=== PATIENT | female | born 1990 | race Caucasian/White ===

== ENCOUNTER 2016-05-02 09:42 | Emergency (ER) | payer MEDICAID, OTHER ==
[2016-05-02 09:43] VITALS: BMI 41.1
[2016-05-02 10:06] VITALS: BP 125/80; PULSE 74; RESP 18; TEMP 98.2; O2SAT 99
--- NOTE | 2016-05-02 11:17 | ED PDOC ---
Arrival/HPI - General Historian: Patient - History of Present Illness Time/Duration: Prior to Arrival Context: Home - General Chief Complaint: ENT Problem Time Seen by Provider: 05/02/16 11:13 - History of Present Illness Narrative History of Present Illness (Text): 05/02/16 11:14 This 25 yo female presents to this ED c/o cough, and feeling she has the Flu. Denies sob, cp, abdominal pain, dizziness, rash, sick contact, or rash (Elly Galindo) Past Medical History - Provider Review Nursing Documentation Reviewed: Yes - Infectious Disease Hx of Infectious Diseases: None - Tetanus Immunization Tetanus Immunization: Unknown - Past Medical History Past Medical History: No Previous - Cardiac Hx Cardiac Disorders: No Hx Hypertension: No - Pulmonary Hx Tuberculosis: No - Neurological HX Cerebrovascular Accident: No Hx Migraine: Yes - HEENT Hx HEENT Disorder: No - Renal Hx Renal Disorder: No - Endocrine/Metabolic Hx Endocrine Disorders: No - Hematological/Oncological Hx Cancer: No - Integumentary Hx Dermatological Disorder: No - Musculoskeletal/Rheumatological Hx Musculoskeletal Disorders: No - Gastrointestinal Hx Gastrointestinal Disorders: No - Genitourinary/Gynecological Hx Sexually Transmitted Diseases: No - Psychiatric Hx Bipolar Disorder: Yes Hx Emotional Abuse: No Hx Physical Abuse: No Hx Substance Use: No Other/Comment: ADD - Surgical History Hx Tonsillectomy: Yes - Anesthesia Hx Anesthesia: Yes Hx Anesthesia Reactions: No Hx Malignant Hyperthermia: No - Suicidal Assessment Feels Threatened In Home Enviroment: No Family/Social History - Physician Review Nursing Documentation Reviewed: Yes Family/Social History: No Known Family HX Smoking Status: Never Smoked Hx Alcohol Use: No Hx Substance Use: No Substance used: [facility] Hx Substance Use Treatment: No Allergies/Home Meds Allergies/Adverse Reactions: Allergies No Known Allergies Allergy (Verified 05/02/16 10:06) Review of Systems - Review of Systems Constitutional: Fevers. absent: Fatigue, Weight Change Eyes: Normal ENT: Normal. absent: Sore Throat Respiratory: Normal, Cough, Sputum. absent: SOB, Wheezing Cardiovascular: Normal. absent: Chest Pain Gastrointestinal: Normal. absent: Abdominal Pain, Nausea, Vomiting Genitourinary Female: Normal. absent: Dysuria, Frequency Musculoskeletal: Normal Skin: Normal. absent: Rash, Pruritis Neurological: Headache. absent: Dizziness, Focal Weakness, Gait Changes, Speech Changes Endocrine: Normal Hemo/Lymphatic: Normal Psychiatric: Normal Physical Exam Temperature: Afebrile Blood Pressure: Normal Pulse: Regular Respiratory Rate: Normal Appearance: Positive for: Well-Appearing, Non-Toxic, Comfortable Pain Distress: None Mental Status: Positive for: Alert and Oriented X 3 - Systems Exam Head: Present: Atraumatic, Normocephalic Pupils: Present: PERRL Extroacular Muscles: Present: EOMI Conjunctiva: Present: Normal Mouth: Present: Moist Mucous Membranes Neck: Present: Normal Range of Motion Respiratory/Chest: Present: Clear to Auscultation, Good Air Exchange. No: Respiratory Distress, Accessory Muscle Use, Wheezes, Retracting, Rhonchi Cardiovascular: Present: Regular Rate and Rhythm, Normal S1, S2. No: Murmurs Abdomen: Present: Normal Bowel Sounds. No: Tenderness, Distention, Peritoneal Signs Back: Present: Normal Inspection. No: CVA Tenderness Upper Extremity: Present: Normal Inspection, Normal ROM, NORMAL PULSES, Neurovascularly Intact, Capillary Refill < 2s. No: Cyanosis, Edema Lower Extremity: Present: Normal Inspection, NORMAL PULSES, Normal ROM, Neurovascularly Intact, Capillary Refill < 2 s. No: Edema Neurological: Present: GCS=15, CN II-XII Intact, Speech Normal, Motor Func Grossly Intact, Normal Sensory Function, Normal Cerebellar Funct, Gait Normal, Memory Normal, Other (No neuro focal deficits) Skin: Present: Warm, Dry, Normal Color. No: Rashes Psychiatric: Present: Alert, Oriented x 3, Normal Insight, Normal Concentration Vital Signs Temp Pulse Resp BP Pulse Ox 05/02/16 10:00 98.2 F 74 18 125/80 99 Medical Decision Making Re-evaluation Time: 11:16 Reassessment Condition: Re-examined, Improved ED Course and Treatment: 05/02/16 11:16 Re-evaluation. Patient feels better. Discussed results and plan with patient who expresses understanding. All questions answered and there is agreement with the plan to discharge home with instructions. Patient stable for discharge. Return if symptoms persist or worsen. Patient is requesting Influenza antibiotic (Elly Galindo) Disposition/Present on Arrival - Present on Arrival Any Indicators Present on Arrival: No History of DVT/PE: No History of Uncontrolled Diabetes: No Urinary Catheter: No History of Decub. Ulcer: No History Surgical Site Infection Following: None - Disposition Have Diagnosis and Disposition been Completed?: Yes Disposition Time: 11:16 Patient Plan: Discharge - Disposition Diagnosis: Flu-like symptoms Disposition: HOME/ ROUTINE Discharge Instructions (ExitCare): Influenza (ED) Additional Instructions: Call private doctor for follow up visit in 2-3 days. Take medication as instructed. Drink enough fluids. Take medication with food. Return to emergency if symptoms worsen. Prescriptions: Promethazine/Codeine [Codeine/Promethazine 10 MG/5 Ml-6.25 MG/5 Ml] 5 ml PO Q4H PRN #120 ml PRN Reason: Cough Oseltamivir [Tamiflu] 75 mg PO BID #10 cap Azithromycin [Z-Fernando] 250 mg PO DAILY #6 tab Referrals: Chyna Burris MD [Primary Care Provider] - Follow up with primary Forms: WORK NOTE
== END 2016-05-02 11:27 | disposition home or self-care (01) ==
LOC: ED 09:42
DX: J11.1 Influenza due to unidentified influenza virus with other respiratory manifestations (principal)

== ENCOUNTER 2016-06-26 14:00 | Emergency (ER) | payer MEDICAID ==
[2016-06-26 14:00] VITALS: BMI 41.1
== END 2016-06-26 15:08 | disposition left against medical advice (07) ==
LOC: ED 14:00
DX: Z02.89 Encounter for other administrative examinations (principal); M25.569 Pain in unspecified knee

== ENCOUNTER 2016-08-01 09:00 | Emergency (ER) | payer MEDICAID ==
[2016-08-01 09:06] VITALS: BMI 36.5
[2016-08-01 09:12] VITALS: O2SAT 98
--- NOTE | 2016-08-01 09:28 | ED PDOC ---
Arrival/HPI - General Chief Complaint: Lower Extremity Problem/Injury Time Seen by Provider: 08/01/16 09:23 Historian: Patient - History of Present Illness Narrative History of Present Illness (Text): 08/01/16 09:25 This 25 yo female with pmh depression , presents to this ED c/o left knee pain x 2 years. Patient stated she hit left knee against a wooden floor, but she "never got it check out". Denies recent injury, weakness, paresthesias, leg swelling, redness, rash, or abnormal gait. Time/Duration: Other (2 years) Context: Home Past Medical History - Provider Review Nursing Documentation Reviewed: Yes - Infectious Disease Hx of Infectious Diseases: None - Tetanus Immunization Tetanus Immunization: Unknown - Past Medical History Past Medical History: No Previous - Cardiac Hx Cardiac Disorders: No Hx Hypertension: No - Pulmonary Hx Tuberculosis: No - Neurological HX Cerebrovascular Accident: No Hx Migraine: Yes - HEENT Hx HEENT Disorder: No - Renal Hx Renal Disorder: No - Endocrine/Metabolic Hx Endocrine Disorders: No - Hematological/Oncological Hx Cancer: No - Integumentary Hx Dermatological Disorder: No - Musculoskeletal/Rheumatological Hx Musculoskeletal Disorders: No - Gastrointestinal Hx Gastrointestinal Disorders: No - Genitourinary/Gynecological Hx Sexually Transmitted Diseases: No - Psychiatric Hx Psychophysiologic Disorder: Yes Hx Bipolar Disorder: Yes Hx Emotional Abuse: No Hx Physical Abuse: No Hx Substance Use: No Other/Comment: ADD - Surgical History Hx Tonsillectomy: Yes Other/Comment: cyst removed from pelvic area - Anesthesia Hx Anesthesia: Yes Hx Anesthesia Reactions: No Hx Malignant Hyperthermia: No - Suicidal Assessment Feels Threatened In Home Enviroment: No Family/Social History - Physician Review Nursing Documentation Reviewed: Yes Family/Social History: No Known Family HX Smoking Status: Never Smoked Hx Alcohol Use: No Hx Substance Use: No Substance used: marjuana Hx Substance Use Treatment: No Allergies/Home Meds Allergies/Adverse Reactions: Allergies No Known Allergies Allergy (Verified 08/01/16 09:06) Home Medications: Home Meds Medication Instructions Recorded Confirmed Divalproex [Depakote ER] 250 mg PO BID 08/01/16 08/01/16 Methylphenidate HCl [Ritalin] 15 mg PO BID 08/01/16 08/01/16 Review of Systems - Review of Systems Constitutional: Normal. absent: Fatigue, Weight Change, Fevers Eyes: Normal ENT: Normal Respiratory: Normal. absent: SOB, Cough Cardiovascular: Normal Gastrointestinal: Normal Genitourinary Female: Normal Musculoskeletal: Other (left knee pain) Skin: Normal Neurological: Normal Endocrine: Normal Hemo/Lymphatic: Normal Psychiatric: Normal Physical Exam Vital Signs Temp Pulse Resp BP Pulse Ox 08/01/16 09:11 98.5 F 99 H 19 98/62 L 98 Temperature: Afebrile Blood Pressure: Normal Pulse: Regular Respiratory Rate: Normal Appearance: Positive for: Well-Appearing, Non-Toxic, Comfortable Pain Distress: None Mental Status: Positive for: Alert and Oriented X 3 - Systems Exam Head: Present: Atraumatic, Normocephalic Pupils: Present: PERRL Extroacular Muscles: Present: EOMI Conjunctiva: Present: Normal Mouth: Present: Moist Mucous Membranes Upper Extremity: Present: Normal Inspection, Normal ROM, NORMAL PULSES, Neurovascularly Intact, Capillary Refill < 2s Lower Extremity: Present: Normal Inspection, NORMAL PULSES, Normal ROM, Neurovascularly Intact, Capillary Refill < 2 s. No: CALF TENDERNESS Neurological: Present: GCS=15, CN II-XII Intact, Speech Normal, Motor Func Grossly Intact, Normal Sensory Function, Normal Cerebellar Funct, Gait Normal, Memory Normal Skin: Present: Warm, Dry, Normal Color. No: Rashes Psychiatric: Present: Alert, Oriented x 3 Medical Decision Making ED Course and Treatment: 08/01/16 11:03 Re-evaluation. Patient feels better. Discussed results and plan with patient who expresses understanding. All questions answered and there is agreement with the plan to discharge home with instructions. Patient stable for discharge. Return if symptoms persist or worsen. Re-evaluation Time: 11:03 Reassessment Condition: Re-examined, Improved - RAD Interpretation Narrative RAD Interpretations (Text): 08/01/16 11:03 Knee x-rays: No fracture or dislocation Radiology Orders: 08/01/16 09:24 KNEE LEFT 2 VIEWS (AP & LAT) [RAD] Stat Disposition/Present on Arrival - Present on Arrival Any Indicators Present on Arrival: No History of DVT/PE: No History of Uncontrolled Diabetes: No Urinary Catheter: No History of Decub. Ulcer: No History Surgical Site Infection Following: None - Disposition Have Diagnosis and Disposition been Completed?: Yes Diagnosis: Knee pain Disposition: HOME/ ROUTINE Disposition Time: 11:04 Patient Plan: Discharge Condition: GOOD Discharge Instructions (ExitCare): Knee Pain (ED) Additional Instructions: Call private doctor for follow up visit in 1-2 days. Take medication as instructed. Return to emergency as needed for worsen of symptoms. Prescriptions: Ibuprofen [Motrin] 600 mg PO Q8 PRN #20 tab PRN Reason: Pain, Severe (8-10) Forms: WORK NOTE
[2016-08-01 11:14] VITALS: BP 100/78; PULSE 88; RESP 18; TEMP 98.9
--- NOTE | 2016-08-01 12:14 | RAD ---
PROCEDURE: Left Knee Radiographs. AP and cross-table lateral views of the left knee HISTORY: Pain. COMPARISON: In this timeframe. None. FINDINGS: BONES: Normal. No fracture. JOINTS: Normal. No osteoarthritis. JOINT EFFUSION: None. OTHER FINDINGS: None. IMPRESSION: No evidence of acute displaced fracture nor dislocation. If symptoms persist or occult fracture suspected clinically recommend repeat radiographs in 5-10 days as most fractures should become radiographically evident
== END 2016-08-01 11:14 | disposition home or self-care (01) ==
LOC: ED 09:00
DX: M25.562 Pain in left knee (principal)

== ENCOUNTER 2016-09-07 16:27 | Emergency (ER) | payer MEDICAID ==
[2016-09-07 16:28] VITALS: BMI 36.5
[2016-09-07 16:38] VITALS: RESP 18; TEMP 98.3
[2016-09-07] MEDS ORDERED: Amoxicillin-Clav 875-125 mg Tab PO STA (17:05)
--- NOTE | 2016-09-07 17:08 | ED PDOC ---
Arrival/HPI - General Chief Complaint: Abnormal Skin Integrity Time Seen by Provider: 09/07/16 17:04 Historian: Patient - History of Present Illness Narrative History of Present Illness (Text): 09/07/16 17:05 This 25 yo female presents to this ED c/o sub mental swelling x 2 days. Patient stated swelling has improved today. Patient denies fever, skin rash, drainage, cason, trauma, or weakness. Time/Duration: Other (2 days) Context: Home Past Medical History - Provider Review Nursing Documentation Reviewed: Yes - Infectious Disease Hx of Infectious Diseases: None - Tetanus Immunization Tetanus Immunization: Unknown - Past Medical History Past Medical History: No Previous - Cardiac Hx Cardiac Disorders: No Hx Hypertension: No - Pulmonary Hx Respiratory Disorders: No - Neurological HX Cerebrovascular Accident: No Hx Migraine: Yes - HEENT Hx HEENT Disorder: No - Renal Hx Renal Disorder: No - Endocrine/Metabolic Hx Endocrine Disorders: No - Hematological/Oncological Hx Blood Disorders: No - Integumentary Hx Dermatological Disorder: No - Musculoskeletal/Rheumatological Hx Musculoskeletal Disorders: No - Gastrointestinal Hx Gastrointestinal Disorders: No - Genitourinary/Gynecological Hx Sexually Transmitted Diseases: No - Psychiatric Hx Psychophysiologic Disorder: Yes Hx Bipolar Disorder: Yes Hx Emotional Abuse: No Hx Physical Abuse: No Hx Substance Use: No Other/Comment: ADD - Surgical History Hx Tonsillectomy: Yes Other/Comment: cyst removed from pelvic area - Anesthesia Hx Anesthesia: Yes Hx Anesthesia Reactions: No Hx Malignant Hyperthermia: No - Suicidal Assessment Feels Threatened In Home Enviroment: No Family/Social History - Physician Review Nursing Documentation Reviewed: Yes Family/Social History: No Known Family HX Smoking Status: Never Smoked Hx Alcohol Use: No Hx Substance Use: No Substance used: marjuana Hx Substance Use Treatment: No Allergies/Home Meds Allergies/Adverse Reactions: Allergies No Known Allergies Allergy (Verified 08/01/16 09:06) Home Medications: Home Meds Medication Instructions Recorded Confirmed Methylphenidate HCl [Ritalin] 15 mg PO BID 08/01/16 09/07/16 Review of Systems - Review of Systems Constitutional: Normal. absent: Fatigue, Weight Change, Fevers Eyes: Normal ENT: Normal Respiratory: Normal Cardiovascular: Normal Gastrointestinal: Normal Genitourinary Female: Normal Musculoskeletal: Normal Skin: Other (see hpi) Neurological: Normal Endocrine: Normal Hemo/Lymphatic: Normal Psychiatric: Normal Physical Exam Vital Signs Temp Pulse Resp BP Pulse Ox 09/07/16 16:29 98.3 F 74 18 104/66 99 Temperature: Afebrile Blood Pressure: Normal Pulse: Regular Respiratory Rate: Normal Appearance: Positive for: Well-Appearing, Non-Toxic, Comfortable Pain Distress: None Mental Status: Positive for: Alert and Oriented X 3 - Systems Exam Head: Present: Normocephalic, Abrasion Pupils: Present: PERRL Extroacular Muscles: Present: EOMI Conjunctiva: Present: Normal Mouth: Present: Moist Mucous Membranes, Normal Lips, Normal Tounge, Normal Teeth , Other (Mild tenderness over left submetal salivary gland under tongue. No drainage, FB, or oral mucosa lesion.). No: Drooling, Trismus Neck: Present: Normal Range of Motion, Trachea Midline, Other (Mild swelling over salivary gland, sub mental. No abscess, or erythema. No echhymosis). No : Meningeal Signs, MIDLINE TENDERNESS, Paraspinal Tenderness, Lymphadenopathy Respiratory/Chest: Present: Clear to Auscultation, Good Air Exchange. No: Respiratory Distress, Accessory Muscle Use, Wheezes, Retracting, Rhonchi Cardiovascular: Present: Regular Rate and Rhythm, Normal S1, S2. No: Murmurs Upper Extremity: Present: Normal Inspection, Normal ROM, NORMAL PULSES, Neurovascularly Intact, Capillary Refill < 2s Lower Extremity: Present: Normal Inspection, NORMAL PULSES, Normal ROM, Neurovascularly Intact, Capillary Refill < 2 s. No: Edema, CALF TENDERNESS Neurological: Present: GCS=15, CN II-XII Intact, Speech Normal, Motor Func Grossly Intact, Normal Sensory Function, Normal Cerebellar Funct, Gait Normal, Memory Normal Skin: Present: Warm, Dry, Normal Color. No: Rashes Psychiatric: Present: Alert, Oriented x 3 Medical Decision Making ED Course and Treatment: 09/07/16 17:12 Re-evaluation. Patient feels better. Discussed results and plan with patient who expresses understanding. Counseling was provided regarding the diagnosis and prognosis. All questions answered and there is agreement with the plan to discharge home with instructions. Patient stable for discharge. Return if symptoms persist or worsen Submental salivary gland very mild swelling. No erythema. No oral mucosa lesion. I would recommend ABX and to massage salivary gland while chewing [place] , and to F/u ENT within this week. Re-evaluation Time: 17:12 Reassessment Condition: Re-examined, Improved Disposition/Present on Arrival - Present on Arrival Any Indicators Present on Arrival: No History of DVT/PE: No History of Uncontrolled Diabetes: No Urinary Catheter: No History of Decub. Ulcer: No History Surgical Site Infection Following: None - Disposition Have Diagnosis and Disposition been Completed?: Yes Diagnosis: Salivary gland swelling Disposition: HOME/ ROUTINE Disposition Time: 17:15 Patient Plan: Discharge Condition: GOOD Discharge Instructions (ExitCare): Sialoadenitis (ED) Additional Instructions: Call ENT Dr. Chavez office for follow up visit within 5 days. Take medication as instructed with food. Massage salivary gland as instructed, and consider warmth compress. Take OTC Motrin if pain arise. Return to emergency if symptoms worsen. Prescriptions: Amoxicillin/Clavulanate [Augmentin 875 MG-125 MG] 1 tab PO BID #14 tab Referrals: Ike Chavez DO [Staff Provider] - Follow up with primary Forms: [employer] (German)
[2016-09-07 17:37] VITALS: BP 111/62; PULSE 70; O2SAT 100
== END 2016-09-07 17:37 | disposition home or self-care (01) ==
LOC: ED 16:27
DX: K11.20 Sialoadenitis, unspecified (principal)

== ENCOUNTER 2018-07-02 18:49 | Emergency (ER) | payer MEDICAID ==
[2018-07-02 19:02] VITALS: BMI 36.3
[2018-07-02 19:06] VITALS: BP 118/74; RESP 18; TEMP 99.1; O2SAT 100
--- NOTE | 2018-07-02 19:34 | ED PDOC ---
Arrival/HPI <Hermes Elliott - Last Filed: 07/02/18 20:11> - General Historian: Patient - History of Present Illness Narrative History of Present Illness (Text): 07/02/18 19:30 Pt is a 27 yo female with a PMH of depression, ADD who presents to the ED complaining of cough, sore throat, subjective fever, jaw pain which started about 1 week ago after she had a sick contact with similar symptoms. Pt reports subjective fever. Pt reports 2 episodes of NBNB diarrhea. Pt tried tylenol which did not help very much. Pt reports yellow-green sputum. Denies vomiting and constipation. Time/Duration: < week Symptom Onset: Gradual Symptom Course: Unchanged Quality: Cramping Severity Level: 5 Activities at Onset: Rest Context: Sitting <Stephane Tipton - Last Filed: 07/02/18 22:34> - General Chief Complaint: Cough, Cold, Congestion Past Medical History - Infectious Disease Hx of Infectious Diseases: None - Tetanus Immunization Tetanus Immunization: Unknown - Past Medical History Past Medical History: No Previous - Cardiac Hx Cardiac Disorders: No Hx Hypertension: No - Pulmonary Hx Respiratory Disorders: No - Neurological HX Cerebrovascular Accident: No Hx Migraine: Yes - HEENT Hx HEENT Disorder: No - Renal Hx Renal Disorder: No - Endocrine/Metabolic Hx Endocrine Disorders: No - Hematological/Oncological Hx Blood Disorders: No - Integumentary Hx Dermatological Disorder: No - Musculoskeletal/Rheumatological Hx Musculoskeletal Disorders: No - Gastrointestinal Hx Gastrointestinal Disorders: No - Genitourinary/Gynecological Hx Sexually Transmitted Diseases: No - Psychiatric Hx Psychophysiologic Disorder: Yes Hx Bipolar Disorder: Yes Hx Emotional Abuse: No Hx Physical Abuse: No Hx Substance Use: No Other/Comment: ADD - Surgical History Hx Tonsillectomy: Yes Other/Comment: cyst removed from pelvic area - Anesthesia Hx Anesthesia: Yes Hx Anesthesia Reactions: No Hx Malignant Hyperthermia: No - Suicidal Assessment Feels Threatened In Home Enviroment: No <Stephane Tipton - Last Filed: 07/02/18 22:34> Family/Social History Family/Social History: Neoplasm/Cancer Smoking Status: Current Some Days Smoker Hx Alcohol Use: No Hx Substance Use: Yes (marijuana) Substance used: marjuana Route: Oral Hx Substance Use Treatment: No <Stephane Tipton - Last Filed: 07/02/18 22:34> Allergies/Home Meds <Hermes Elliott - Last Filed: 07/02/18 20:11> <Stephane Tipton - Last Filed: 07/02/18 22:34> Allergies/Adverse Reactions: Allergies No Known Allergies Allergy (Verified 07/02/18 19:01) Home Medications: Home Meds Medication Instructions Recorded Confirmed Methylphenidate HCl [Ritalin] 15 mg PO BID 08/01/16 09/07/16 Review of Systems - Review of Systems Constitutional: Fevers Eyes: Eye Pain ENT: Sore Throat, Rhinorrhea Respiratory: Cough, Sputum Cardiovascular: Normal Gastrointestinal: Diarrhea Musculoskeletal: Normal Skin: Normal Neurological: Normal Endocrine: Normal Hemo/Lymphatic: Normal Psychiatric: Normal <Marisela Tiptonne Fortino - Last Filed: 07/02/18 22:34> Physical Exam Vital Signs Temp Pulse Resp BP Pulse Ox 07/02/18 19:06 99.1 F 91 H 18 118/74 100 <Hermes Elliott - Last Filed: 07/02/18 20:11> Vital Signs Reviewed: Yes Vital Signs Temp Pulse Resp BP Pulse Ox 07/02/18 19:06 99.1 F 91 H 18 118/74 100 Temperature: Afebrile Blood Pressure: Normal Pulse: Regular Respiratory Rate: Normal Appearance: Positive for: Well-Appearing Mental Status: Positive for: Alert and Oriented X 3 - Systems Exam Head: Present: Atraumatic, Normocephalic Pupils: Present: PERRL Extroacular Muscles: Present: EOMI Conjunctiva: Present: Normal Mouth: Present: Moist Mucous Membranes Pharnyx: Present: Normal Respiratory/Chest: Present: Clear to Auscultation, Good Air Exchange. No: Respiratory Distress Cardiovascular: Present: Regular Rate and Rhythm, Normal S1, S2 Abdomen: Present: Normal Bowel Sounds. No: Tenderness, Distention Upper Extremity: Present: Normal Inspection Lower Extremity: Present: Normal Inspection Neurological: Present: GCS=15, CN II-XII Intact Skin: Present: Warm, Dry, Normal Color Psychiatric: Present: Alert, Oriented x 3 <Marisela Tiptonne Fortino - Last Filed: 07/02/18 22:34> Medical Decision Making ED Course and Treatment: Impression: Pt seen and evaluated with medical sales. Aware and agree with HPI, clinical findings, plan, and management. Pt, whose past medical history includes depression, presented for cough, sore throat, and subjective fever. Plan: -- Labs -- Chest X-ray -- Rapid strep, throat cultures -- Reassess and disposition - RAD Interpretation Radiology Orders: 07/02/18 19:29 CXR [CHEST PORTABLE] [RAD] Stat <Hermes Elliott - Last Filed: 07/02/18 20:11> ED Course and Treatment: 07/02/18 19:39 CBC CMP CXR throat c/s rapid strep test 07/02/18 22:03 Rapid strep Negative 07/02/18 22:25 Chest X-ray shows no signs of acute pathological findings - RAD Interpretation Radiology Orders: 07/02/18 19:29 CXR [CHEST PORTABLE] [RAD] Stat <Stephane Tipton - Last Filed: 07/02/18 22:34> - PA / CHALK CUTTER / Resident Statement / has reviewed & agrees with the documentation as recorded. / has examined the patient and agrees with the treatment plan. <Stephane Tipton - Last Filed: 07/02/18 22:34> Disposition/Present on Arrival <Hermes Elliott - Last Filed: 07/02/18 20:11> - Present on Arrival Any Indicators Present on Arrival: No History of DVT/PE: No History of Uncontrolled Diabetes: No Urinary Catheter: No History of Decub. Ulcer: No History Surgical Site Infection Following: None - Disposition Have Diagnosis and Disposition been Completed?: Yes Disposition Time: 22:33 Patient Plan: Discharge <Stephane Tipton - Last Filed: 07/02/18 22:34> - Disposition Diagnosis: Respiratory infection Disposition: HOME/ ROUTINE Condition: GOOD Forms: [employer] (Lebanese)
[2018-07-02 21:42] LABS: ALB/GLOB RATIO 1.5 (1.1-1.8); ALBUMIN 4.3 g/dL (3.0-4.8); ALT/SGPT 25 U/L (7-56); AST/SGOT 25 U/L (14-36); BLOOD UREA NITROGEN 10 mg/dL (7-21); CALCIUM 9.1 mg/dL (8.4-10.5); GFR NON-AFRICAN AMERICAN > 60
[2018-07-02 21:44] LABS: BASO # 0.03 K/mm3 (0.0-2.0); BASO % 0.2 % (0.0-3.0); EOS # 0.2 (0.0-0.7); EOS % 1.3 % (1.5-5.0); HEMOGLOBIN 14.4 g/dL (12.0-16.0); LYMPH # 2.2 (1.2-3.4); LYMPH % 16.8 % (22.0-35.0); MEAN CELL VOLUME 82.1 fl (80.0-105.0); MEAN CORPUSCULAR HEMOGLOBIN 27.7 pg (25.0-35.0); MEAN CORPUSCULAR HGB CONC 33.7 g/dl (31.0-37.0); MEAN PLATELET VOLUME 10.1 fl (7.0-11.0); MONO # 0.7 (0.1-0.6); MONO % 5.4 % (1.0-6.0); RBC 5.2 10^6/uL (3.5-6.1); WHITE BLOOD COUNT 12.8 10^3/uL (4.5-11.0)
[2018-07-02 22:44] VITALS: PULSE 90
--- NOTE | 2018-07-03 08:25 | RAD ---
Date of service: 07/02/2018 HISTORY: cough COMPARISON: 02/16/2013 TECHNIQUE: 1 view obtained. FINDINGS: LUNGS: No active pulmonary disease. PLEURA: No significant pleural effusion identified, no pneumothorax apparent. CARDIOVASCULAR: No aortic atherosclerotic calcification present. Normal cardiac size. No pulmonary vascular congestion. OSSEOUS STRUCTURES: No significant abnormalities. VISUALIZED UPPER ABDOMEN: Normal. OTHER FINDINGS: None. IMPRESSION: No active disease.
== END 2018-07-02 22:44 | disposition home or self-care (01) ==
LOC: ED 18:49
DX: J98.8 Other specified respiratory disorders (principal); F31.9 Bipolar disorder, unspecified